=== PATIENT | male | born 1985 | race Caucasian/White ===

== ENCOUNTER 2016-11-24 23:09 | Emergency (ER) | payer SELFPAY ==
[~2016-11-24] VITALS: Ht 177.8 cm; Wt 77.1 kg
== END 2016-11-25 00:55 | disposition home or self-care (01) ==
LOC: ED 23:09
DX: H57.12 Ocular pain, left eye (principal); H53.8 Other visual disturbances; H57.8 Other specified disorders of eye and adnexa

== ENCOUNTER 2017-03-14 18:04 | Emergency (ER) | payer SELFPAY ==
[~2017-03-14] VITALS: Ht 177.8 cm; Wt 77.6 kg
[2017-03-14 19:08] LABS: BASO % 0.3 % (0.0-1.0); EOS % 0.2 % (1.0-4.0); HEMATOCRIT 40.2 % (42.0-52.0); HEMOGLOBIN 13.9 g/dl (14.0-18.0); LYMPH # 0.9 10*3/uL (1.3-4.4); LYMPH % 6.2 % (27.0-41.0); MEAN CORPUSCULAR HGB 30.4 pg (27.0-31.0); MEAN CORPUSCULAR HGB CONC 34.6 g/dl (33.0-37.0); MONO # 0.9 10*3/uL (0.1-1.0); MONO % 6.1 % (3.0-9.0); NEUT # 12.9 10*3/uL (2.3-7.9); NEUT % 86.9 % (47.0-73.0); PLATELET COUNT AUTOMATED 194 10*3/uL (130-400); RED BLOOD COUNT 4.57 10*6/uL (4.50-5.90); RED CELL DISTRI WIDTH 13.2 % (0-14.5); WHITE BLOOD COUNT 14.9 10*3/uL (4.8-10.8)
[2017-03-14 19:18] LABS: ACT PARTIAL THROMBO TIME 24.2 SECONDS (20.8-31.5)
[2017-03-14 19:24] LABS: ALKALINE PHOSPHATASE 82 U/L (45-117); BUN 11 mg/dl (7-24); CHLORIDE 101 mmol/L (98-107); CREATININE 0.97 mg/dL (0.70-1.30); POTASSIUM 4.4 mmol/L (3.5-5.1); SGOT/AST 45 IU/L (3-35); SGPT/ALT 80 U/L (12-78); SODIUM 135 mmol/L (136-145); TOTAL PROTEIN 8.8 gm/dL (6.4-8.2)
== END 2017-03-14 21:29 | disposition left against medical advice (07) ==
LOC: ED 18:04
PROVIDERS: Physician Assistant
DX: H54.61 Unqualified visual loss, right eye, normal vision left eye (principal); F17.200 Nicotine dependence, unspecified, uncomplicated

== ENCOUNTER 2017-05-02 13:30 | Emergency (ER) | payer SELFPAY ==
[~2017-05-02] VITALS: Ht 177.8 cm; Wt 81.6 kg
[2017-05-02] MEDS ORDERED: CEPHALEXIN500 M1 PO (15:12)
== END 2017-05-02 14:13 | disposition home or self-care (01) ==
LOC: ED 13:30
DX: M79.642 Pain in left hand (principal); F17.200 Nicotine dependence, unspecified, uncomplicated